=== PATIENT | male | born 1960 | race Caucasian/White ===

== ENCOUNTER 2019-04-02 13:58 | Day surgery (SDC) | payer OTHER, SELFPAY ==
--- NOTE | 2019-04-02 | PATH_ITS ---
[facility] Accession Number: [id number] . 01 Material submitted: . PART A: colon - ASCENDING COLON POLYP 4 MM X2 PART B: colon - DESCENDING COLON POLYP 2MM PART C: colon - SIGMOID POLYP 2MM X2 . 02 Diagnosis: A. Ascending Colon, Polyp, 4 MM, Biopsies: Tubular adenomas. . B. Descending Colon, Polyp, 2 MM, Biopsy: Hyperplastic polyp. . C. Sigmoid Colon, Polyp, 2 MM, Biopsy: Hyperplastic polyp, 1 fragment. I 04/04/2019 1301 Local . 02 Electronically signed: . Ashely Willard MD, Pathologist NPI- [id number] . 01 Gross description: . Part A: ASCENDING COLON POLYP 4 MM X2: Received in formalin are 3 fragment(s) of tian, soft tissue measuring 0.3 x 0.2 x 0.2 cm to 0.1 x 0.1 x 0.1 cm submitted entirely in 1 cassette(s) Part B: DESCENDING COLON POLYP 2MM: Received in formalin is 1 fragment(s) of tian, soft tissue measuring 0.3 x 0.1 x 0.1 cm submitted entirely in 1 cassette(s) Part C: SIGMOID POLYP 2MM X2: Received in formalin is 1 fragment(s) of tian, soft tissue measuring 0.4 x 0.2 x 0.1 cm submitted entirely in 1 cassette(s) /QBJ 04/03/2019 0607 Local . 02 Pathologist provided ICD-10: D12.2 . 02 CPT . 865840, 555697, 026064 Performed at: [address], [place], [place] [id number] MD Dusty Waldrop MD Phone: [phone] Performed at: 02 [facility] [place] [address] [place] [id number] MD Ashely Willard MD Phone: [phone]
--- NOTE | 2019-04-02 06:14 | PM.HP.1 ---
History of Present Illness History of Present Illness Date Patient Seen: 04/02/19 Time Patient Seen: 14:45 Chief complaint: [id number] Narrative: 58 Years Old Male comes in today for consideration of a screening colonoscopy. Last colonoscopy in 2013 indicated for screening significant for a 1 mm hepatic flexure tubular adenoma and pancolonic diverticulosis, mild. Prior to that, had a colonoscopy at age 18 secondary to abdominal pain, reportedly normal. Otherwise, there have been no lower GI symptoms suggesting disease such as change in bowel habits, bleeding, abdominal pain or anemia. There's been no family history of colon cancer or colon polyps. Overall health issues have been stable, including no major cardiac events for at least 6 weeks. Past Medical History: Diverticulosis History of colon polyps DEPRESSION W/ ANXIETY TRAPEZIUS MUSCLE STRAIN HYPERLIPIDEMIA HYPERTENSION DEGENERATIVE JOINT DISEASE SLEEP APNEA ALLERGY Past Surgical History: Right knee ACL reconstruction Bilateral shoulder rotator cuff repair Colonoscopy, 2013, tubular adenoma and diverticulosis Colonscopy, age 18, normal, indicated for abdominal pain Family History: Reviewed history from 09/17/2014 and no changes required: Father: age 74 - Lung Cancer, Alcohol, Heart Disease, Diabetes Mother: age 84, Skin Cancer, Stroke, Osteoporosis, Arthritis Siblings: Social History: Marital Status: - Jill (1959) - 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 Children: Yanira (1995) Susannah(1989), Aliece(1990) 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 -[email or web address] Education: Master's Degree Meds Home Medications and Allergies Home Medications Medication Instructions Recorded Confirmed Type lisinopril 20 mg PO DAILY 04/02/19 04/02/19 History lorazepam 0.5 mg PO BID PRN 04/02/19 04/02/19 History cipwixng-tmh-BC-lycopen-lutein 1 tab PO DAILY 04/02/19 04/02/19 History [Centrum Silver Men] Allergies Allergy/AdvReac Type Severity Reaction Status Date / Time No Known Drug Allergies Allergy Unverified 04/02/19 14:11 Review of Systems Review of Systems ROS Unobtainable: All systems reviewed & are unremarkable except as noted in HPI and below Exam Narrative Exam Narrative: General: Alert and oriented, appearing stated age and in no acute distress. Head: Head normocephalic/atraumatic. Neck: Neck soft and supple, no lymphadenopathy. Lungs: Clear to auscultation bilaterally, no wheezes, rhonchi or rales. Heart: Normal S1 and S2 with regular rate and rhythm, no audible murmurs, rubs or gallops. Abdomen: Soft, non-tender, non-distended, no organomegaly. Possitive bowel sounds. Neurologic: no focal deficits, CN II-XII grossly intact with normal reflexes, coordination, sensation, muscle strength and tone, Skin: intact without suspicious lesions or rashes, Psych: Alert and oriented x 3. Assessment & Plan Assessment & Plan narrative: Problem # 1: History of colon polyps 1. Colonoscopy The nature and character of the procedure as well as anticipated results were discussed. The possibility of not completing the procedure was also discussed. Possible complications including aspiration pneumonia, bleeding, perforation and reaction to medications either for sedation or preparation and missed lesions were discussed. Questions were answered and proceeding to the colonoscopy was elected. Informed consent signed. I sincerely appreciate the referral allowing me to participate in this patient's care. Please contact me with any questions or concerns. Problem # 2: Screening for colon cancer Please see #1. Problem # 3: Diverticulosis 1. Diagnosis of diverticulosis and the signs and symptoms of diverticulitis rediscussed with the patient today. High fiber diet and or fiber therapy outlined.
[2019-04-02 14:11] VITALS: BP 176/113; PULSE 90; RESP 16; TEMP 36; O2SAT 95; BMI 30.5
--- NOTE | 2019-04-02 14:12 | PM.OP.ENDO ---
Operative Date/Time/Diagnoses Date of procedure: 04/02/19 Time of procedure: 14:54 Pre-op diagnosis: 1. History of colon polyps 2. Screening for colon cancer 3. Diverticulosis Post-op diagnosis: other (Ascending polyp x2, 4-6 mm; descending polyp x1, 2 mm; sigmoid polyp x2, 2 mm) Procedure & Clinicians Study performed: 1. Colonoscopy Same procedure as scheduled: Yes Indications: 1. History of colon polyps 2. Screening for colon cancer 3. Diverticulosis Surgeon: Zamzam Melgar Procedure Notes SCOAP/Timeout: 14:54 Procedure in detail: ENDOSCOPIST: Zamzam Melgar MD Sedation RN: Olivia Maya RN Sedation start time: 2:55 p.m. Sedation end time: 3:20 p.m. PROCEDURE: Colonoscopy with cold biopsy INDICATIONS: 1. History of colon polyps 2. Screening for colon cancer 3. Diverticulosis MEDICATION: Levsin 0.125 mg sublingual, incremental doses of Versed and fentanyl until appropriate level sedation achieved. ASA CLASS: 2 CECAL WITHDRAWAL TIME: 14 minutes COMPLICATIONS: None. EXTENT OF PROCEDURE: Cecum. QUALITY OF PREP: Good with portions of liquid stool. PROCEDURE: Prior to insertion of the colonoscope, a digital rectal examination was accomplished with circumferential palpation of the distal rectal mucosa without significant findings being noted. The high-definition colonoscope was passed into the rectum in the usual fashion and advanced over to the cecum without difficulty. The ileocecal valve, appendiceal stoma, and medial wall all could be inspected and no abnormalities were seen. ASCENDING COLON: As the colonoscope was withdrawn, care was taken to expose and inspect the haustral folds and two, 4-6 mm polyps were removed with cold biopsy forceps, excellent hemostasis. Minor diverticulosis seen throughout withdrawal. HEPATIC FLEXURE: Minor diverticulosis, otherwise, no other abnormalities. TRANSVERSE COLON: Minor diverticulosis, otherwise, no other abnormalities. DESCENDING COLON: 2 mm polyp x1, removed with cold biopsy forceps. Monitor diverticulosis, otherwise no other abnormalities. SIGMOID COLON: 2 small polyps, 2 mm in size, removed with cold biopsy forceps. Otherwise, moderate diverticulosis but no other abnormalities. RECTUM: Normal. J maneuver was produced. There was no significant perianal disease. The J maneuver was broken. The remainder of the rectum was inspected and there was no external hemorrhoid disease. The scope was withdrawn. IMPRESSION: 1. Ascending polyp x2, 4-6 mm, removed with cold biopsy forceps 2. Descending polyp x1, 2 mm, removed with cold biopsy forceps 3. Sigmoid polyp x2, 2 mm, removed with cold biopsy forceps 4. Barreto colonic diverticulosis, left greater than right PLAN: 1. Follow up in clinic status post pathology results. The possibility of a missed lesion including a malignancy has been discussed with the patient previously. Potential alarm symptoms have been discussed and should be reported immediately. Scope withdrawal time: 14 minutes Sedation minutes: 30 Findings: diverticulosis and polyp Specimen(s): other Complications: none Impression: As above. Post-procedure Recommendations: Will call with biopsy results Follow up: weeks (2) Disposition: PACU
[2019-04-02] MEDS: SODIUM CHLORIDE 0.9% 1,000 ML 200 ML IV (14:29)
[2019-04-02] MEDS: fentaNYL 250 MCG/5 ML INJ IV (15:26)
[2019-04-02] MEDS: MIDAZOLAM 5 MG/5 ML VIAL IV (15:28)
[2019-04-02 15:30] VITALS: BP 151/92; PULSE 90; RESP 15; TEMP 36.7; O2SAT 95
[2019-04-02 15:45] VITALS: BP 134/88; PULSE 76; RESP 15; TEMP 36.6; O2SAT 94
[2019-04-02 16:01] VITALS: BP 141/92; PULSE 67; RESP 15; TEMP 36.7; O2SAT 95
== END 2019-04-02 16:06 | disposition home or self-care (01) ==
PROVIDERS: PCP Family Medicine; Visit Provider Student in an Organized Health Care Education/Training Program
PROC: 0DJD8ZZ Inspection of Lower Intestinal Tract, Via Natural or Artificial Opening Endoscopic (ICD-10-PCS; CPT 45378; principal; 2019-04-02 15:00)
DX: Z12.11 Encounter for screening for malignant neoplasm of colon (principal); Z86.010 Personal history of colon polyps; K57.30 Diverticulosis of large intestine without perforation or abscess without bleeding; D12.2 Benign neoplasm of ascending colon; K63.5 Polyp of colon
CPT/HCPCS: 45380; J2250; J3010

== ENCOUNTER → 2021-10-09 08:45 | Outpatient (CLI) | payer OTHER, SELFPAY ==
[2021-10-09 09:11] LABS: Add Manual Diff / Slide Review NO; Basophils Absolute Auto 0 /uL (0-100); Basophils Percent Auto 0.9 % (0-2); Eosinophils Absolute Auto 100 /uL (0-450); Eosinophils Percent Auto 1.6 % (2-4); Hematocrit 47.7 % (41-53); Hemoglobin 16.9 g/dL (13.5-17.5); Lymphocytes Absolute Auto 1600 /uL (1100-4500); Lymphocytes Percent Auto 30.3 % (25-40); Mean Corpuscular HGB Conc 35.4 % (30-36); Mean Corpuscular Volume 93.3 fL (80-100); Monocytes Absolute Auto 600 /uL (0-900); Monocytes Percent Auto 11.3 % (3-14); Neutrophils Absolute Auto 3000 /uL (1500-7000); Neutrophils Percent Auto 55.9 % (50-75); Platelet Count 197 X10^3/uL (150-400); Red Blood Cell Count 5.11 X10^6/uL (4.5-5.9); Red Cell Distribution Width 11.8 % (11.6-14.8); White Blood Cell Count 5.3 X10^3/uL (4.5-11.0)
[2021-10-09 09:24] LABS: Alanine Aminotransferase 40 IU/L (<50); Albumin 4.7 g/dL (3.5-5.0); Albumin Globulin Ratio 1.6 (1.0-2.8); Alkaline Phosphatase 52 U/L (38-126); Aspartate Aminotransferase 35 IU/L (17-59); BUN Creatinine Ratio 19.4 (6-22); Bilirubin Total 0.8 mg/dL (0.2-1.3); Blood Urea Nitrogen 19 mg/dL (9-20); Calcium 9.2 mg/dL (8.4-10.2); Carbon Dioxide 27 mmol/L (22-32); Chloride 104 mmol/L (98-107); Cholesterol 242 mg/dL (140-199); Estimated Glomerular Filt Rate > 60 mL/min (>60); Glucose 146 mg/dL (80-110); HDL Cholesterol 47 mg/dL (40-60); HEMOLYSIS < 15 (0-50); LDL Cholesterol Calculated 172 mg/dL (<100); Potassium 4.5 mmol/L (3.4-5.1); Sodium 138 mmol/L (137-145); Total Protein 7.7 g/dL (6.3-8.2); Triglycerides 117 mg/dL (35-150)
[2021-10-09 09:53] LABS: Prostate Specific Antigen Scrn 0.496 ng/mL (0.1-4.0)
[2021-10-09 09:54] LABS: TSH w/ Reflex to FT4 3.33 uIU/mL (0.47-4.68)
[2021-10-09 10:00] LABS: Hemoglobin A1C% w Est Avg Glu 6.4 % (4.0-6.0)
[2021-10-09 10:11] LABS: Microalbumi Creatinin Ratio Ur 6.4 ug/mg CR (<30); Microalbumin Urine Random 1.5 mg/dL (0-1.6)
== END ==
PROVIDERS: PCP Family Medicine; Referring Provider Family Medicine; Visit Provider Family Medicine
DX: F41.9 Anxiety disorder, unspecified (principal); I10 Essential (primary) hypertension; K63.5 Polyp of colon; Z12.5 Encounter for screening for malignant neoplasm of prostate; R73.9 Hyperglycemia, unspecified
CPT/HCPCS: 36415; 80053; 80061; 82043; 82570; 83036; 84443; 85025; G0103

== ENCOUNTER → 2022-12-14 14:03 | Outpatient (CLI) | payer OTHER, SELFPAY ==
--- NOTE | 2022-12-14 14:04 | DI.RAD.S_ITS ---
PROCEDURE: XR HAND RT MIN 3V INDICATIONS: bilateral hand pain TECHNIQUE: 3 views of the hand(s) acquired. COMPARISON: [facility], CR, XR HAND LT MIN 3V, 12/14/2022, 14:14. FINDINGS: Bones: No fractures or dislocations. Carpal bones are normally aligned. No suspicious bony lesions. Severe 1st CMC joint space narrowing with periarticular osteophyte formation and subchondral cystic change. Soft tissues: No suspicious soft tissue calcifications. 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 Dictated by: Truong Ugalde [facility] Interpreted: Wayne Gold MD on 12/14/2022 at 14:21 Transcribed by: CAROLINA on 12/14/2022 at 14:22 Approved by: Wayne Gold M.D. on 12/14/2022 at 21:02
--- NOTE | 2022-12-14 14:04 | DI.RAD.S_ITS ---
PROCEDURE: XR HAND LT MIN 3V INDICATIONS: bilateral hand pain TECHNIQUE: 3 views of the hand(s) acquired. COMPARISON: [facility], CR, XR HAND RT MIN 3V, 12/14/2022, 14:12. FINDINGS: Bones: No acute fractures or dislocations. Healed fracture deformity of the 5th metacarpus. Carpal bones are normally aligned. No suspicious bony lesions. Severe triscaphe and 1st CMC joint space narrowing with periarticular osteophyte formation. Soft tissues: No suspicious soft tissue calcifications. 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 Dictated by: Truong Ugalde [facility] Interpreted: Wayne Gold MD on 12/14/2022 at 14:22 Transcribed by: CAROLINA on 12/14/2022 at 14:23 Approved by: Wayne Gold M.D. on 12/14/2022 at 21:04
[2022-12-14 15:42] LABS: Add Manual Diff / Slide Review NO; Basophils Absolute Auto 0 /uL (0-100); Basophils Percent Auto 0.5 % (0-2); Eosinophils Absolute Auto 0 /uL (0-450); Eosinophils Percent Auto 0.6 % (2-4); Hematocrit 43.8 % (41-53); Hemoglobin 15.7 g/dL (13.5-17.5); Lymphocytes Absolute Auto 1900 /uL (1100-4500); Mean Corpuscular HGB Conc 35.8 % (30-36); Mean Corpuscular Hemoglobin 33.3 PG (26-34); Mean Corpuscular Volume 92.9 fL (80-100); Monocytes Absolute Auto 900 /uL (0-900); Monocytes Percent Auto 12.5 % (3-14); Neutrophils Absolute Auto 4000 /uL (1500-7000); Neutrophils Percent Auto 58.4 % (50-75); Platelet Count 201 X10^3/uL (150-400); Red Blood Cell Count 4.71 X10^6/uL (4.5-5.9); Red Cell Distribution Width 12.2 % (11.6-14.8); White Blood Cell Count 6.9 X10^3/uL (4.5-11.0)
[2022-12-14 16:05] LABS: Erythrocyte Sedimentation Rate 3 MM/HR (0-15)
[2022-12-14 16:22] LABS: Alanine Aminotransferase 38 IU/L (<50); Albumin 4.5 g/dL (3.5-5.0); Albumin Globulin Ratio 1.6 (1.0-2.8); Alkaline Phosphatase 68 U/L (38-126); Aspartate Aminotransferase 42 IU/L (17-59); BUN Creatinine Ratio 18.5 (6-22); Blood Urea Nitrogen 17 mg/dL (9-20); C-Reactive Protein Quant 0.6 mg/dL (<1.0); Calcium 9.1 mg/dL (8.4-10.2); Carbon Dioxide 25 mmol/L (22-32); Chloride 99 mmol/L (98-107); Cholesterol 213 mg/dL (140-199); Estimated Glomerular Filt Rate > 60 mL/min (>60); Globulin 2.9 g/dL (1.7-4.1); Glucose 112 mg/dL (80-110); HDL Cholesterol 46 mg/dL (40-60); HEMOLYSIS < 15 (0-50); LDL Cholesterol Calculated 149 mg/dL (<100); Potassium 4.1 mmol/L (3.4-5.1); Sodium 133 mmol/L (137-145); Total Protein 7.4 g/dL (6.3-8.2); Triglycerides 90 mg/dL (35-150)
[2022-12-14 16:23] LABS: Rheumatoid Factor 23.2 IU/mL (<12.0)
[2022-12-14 16:47] LABS: TSH w/ Reflex to FT4 2.48 uIU/mL (0.47-4.68)
[2022-12-14 16:49] LABS: Prostate Specific Antigen Scrn 0.354 ng/mL (0.1-4.0)
[2022-12-14 18:35] LABS: Creatinine Urine Random 156.7 mg/dL
[2022-12-14 18:41] LABS: Microalbumi Creatinin Ratio Ur 6.3 ug/mg CR (<30)
[2022-12-15 22:13] LABS: Labcorp Hemoglobin (Hb) A1c 6.2 % (4.8-5.6)
[2022-12-16 16:36] LABS: ANA Screen, IFA Negative (.)
== END ==
PROVIDERS: PCP Family Medicine; Referring Provider Family Medicine; Visit Provider Family Medicine
DX: M18.0 Bilateral primary osteoarthritis of first carpometacarpal joints (principal); M19.032 Primary osteoarthritis, left wrist; M79.642 Pain in left hand; M79.641 Pain in right hand; I10 Essential (primary) hypertension; M25.50 Pain in unspecified joint; M25.60 Stiffness of unspecified joint, not elsewhere classified; R73.9 Hyperglycemia, unspecified; F41.9 Anxiety disorder, unspecified; R01.1 Cardiac murmur, unspecified; Z12.5 Encounter for screening for malignant neoplasm of prostate
CPT/HCPCS: 36415; 73130; 80053; 80061; 82043; 82570; 83036; 84443; 85025; 85651; 86038; 86140; 86430; G0103

== ENCOUNTER → 2024-04-04 10:33 | Outpatient (CLI) | payer MEDICARE, OTHER, SELFPAY ==
[2024-04-04 11:09] LABS: Hemoglobin A1C% w Est Avg Glu 6.1 % (4.0-6.0)
[2024-04-04 11:26] LABS: Cholesterol 201 mg/dL (140-199); HDL Cholesterol 41 mg/dL (40-60); LDL Cholesterol Calculated 146 mg/dL (<100); Triglycerides 72 mg/dL (35-150)
[2024-04-04 11:57] LABS: Prostate Specific Antigen Scrn 0.346 ng/mL (0.1-4.0)
[2024-04-04 11:58] LABS: TSH w/ Reflex to FT4 2.51 uIU/mL (0.47-4.68)
[2024-04-04 12:10] LABS: Creatinine Urine Random 121.25 mg/dL
[2024-04-04 12:15] LABS: Microalbumin Urine Random 1.1 mg/dL (0-1.6)
== END ==
LOC: LAB 10:34
PROVIDERS: PCP Family Medicine; Referring Provider Family Medicine; Visit Provider Family Medicine
DX: R73.9 Hyperglycemia, unspecified (principal); I10 Essential (primary) hypertension; Z12.5 Encounter for screening for malignant neoplasm of prostate; R01.1 Cardiac murmur, unspecified; R00.2 Palpitations; G47.8 Other sleep disorders; R06.83 Snoring; M05.79 Rheumatoid arthritis with rheumatoid factor of multiple sites without organ or systems involvement; D47.2 Monoclonal gammopathy
CPT/HCPCS: 36415; 80061; 82043; 82570; 83036; 84443; G0103

== ENCOUNTER → 2024-04-16 07:47 | Outpatient (CLI) | payer MEDICARE, OTHER, SELFPAY | LOC: CAR 07:48 | PROVIDERS: PCP Family Medicine; Referring Provider Family Medicine; Visit Provider Family Medicine | DX: R00.2 Palpitations (principal) | CPT/HCPCS: 93246 ==

== ENCOUNTER → 2024-04-30 10:28 | Outpatient (CLI) | payer MEDICARE, OTHER, SELFPAY ==
--- NOTE | 2024-04-30 10:29 | DI.ECHO.S_ITS ---
[facility] : : [id number] : [place] : : [id number] : : Phone: [phone] Echocardiogram Report + + :Name: SEBASTIAN MICHAELS Study Date: 04/30/2024 Height: 69 in : :[facility] ReadingLocation: Weight: 212 lb : : Gender: Male BSA: 2.1 m2 : :: 1960 Age: 63 yrs BP: 192/111 mmHg: :Reason For Study: MURMUR : :Ordering Physician: LISY, : :DEMETRIO Performed By: Jorge Lees : :Referring: DEMETRIO WASSERMAN : + + Interpretation Summary Normal left ventricle size with ejection fraction 55-60%. Mild biatrial enlargement. Mild aortic stenosis. Mild mitral stenosis. Procedure: A two-dimensional transthoracic echocardiogram with color flow and Doppler was performed. The study quality was technically adequate. There is no prior echocardiogram noted for this patient. The patient was in normal sinus rhythm during the exam. Left Ventricle: The left ventricle is normal in size. There is normal left ventricular wall thickness. There is no ventricular septal defect visualized. The ejection fraction is estimated to be 55-60%. There are no focal wall motion abnormalities. Right Ventricle: The right ventricle is normal in size and function. Atria: There is mild biatrial enlargement. There is no Doppler evidence for an atrial septal defect. Mitral Valve: There is mild mitral annular calcification. The mitral valve leaflets are moderately calcified. There is mild mitral stenosis. The mitral valve mean gradient is 3 mmHg. There is trace mitral regurgitation. Aortic Valve: The aortic valve is moderately calcified. A bicuspid aortic valve cannot be excluded. There is mild aortic stenosis. The peak aortic velocity is 2.63 m/sec. The aortic valve mean gradient is 15.5 mmHg. The calculated aortic valve area is 1.6 cm2. There is trace aortic regurgitation. Tricuspid Valve: The tricuspid valve is normal in structure and function. There is mild tricuspid regurgitation. The right ventricular systolic pressure is estimated to be at least 29 mmHg based on an estimated right atrial pressure of 3 mm Hg. Pulmonic Valve: The pulmonic valve is normal in structure and function. There is no pulmonic valvular regurgitation. Great Vessels: The aortic root is mildly dilated. The ascending aorta is mildly enlarged. The pulmonary artery is normal size. The IVC is of normal diameter and collapses greater than 50% with a sniff. This suggests a low right atrial pressure of 3 mm Hg. Pericardium/ Pleura There is no pericardial effusion. There is no pleural effusion. MMode/2D Measurements & Calculations LVIDd: 4.9 cm LVOT diam: 2.0 cm LVIDs: 3.7 cm Ao root diam: 3.9 cm FS: 24.1 % asc Aorta Diam: 3.9 cm EPSS: 1.7 cm Ao Arch Diam (Prox Trans): 1.8 cm IVSd: 1.1 cm LVPWd: 1.0 cm LV corado. diameter/BSA (cm/m^2): 2.3 LV sys. diameter/BSA (cm/m^2): 1.8 LA A2 area: 23.8 cm2 RA long axis: 5.5 cm LA A4 area: 25.6 cm2 RA area: 18.8 cm2 LA length (vol): 6.4 cm RA vol: 54.2 ml LA vol: 81.0 ml RA : 25.6 ml/m2 LA vol index: 38.3 ml/m2 IVC diam: 2.0 cm RVD1 (basal): 3.9 cm RVD2 (mid): 2.8 cm TAPSE: 3.1 cm Doppler Measurements & Calculations Ao V2 max: 263.3 cm/sec LVOT Max Jeremy: 126.0 cm/sec Ao V2 mean: 184.5 cm/sec LV V1 max P.4 mmHg Ao max P.7 mmHg LV V1 VTI: 35.0 cm Ao mean P.5 mmHg NANCY(I,D): 1.9 cm2 Ao V2 VTI: 61.8 cm NANCY(V,D): 1.6 cm2 sev ratio: 0.57 NANCY indexed to BSA (cm^2/m^2): 0.88 MV E max jeremy: 96.0 cm/sec TR max jeremy: 254.2 cm/sec MV A max jeremy: 118.9 cm/sec TR max P.8 mmHg MV E/A: 0.81 PA V2 max: 95.9 cm/sec Med Peak E' Jeremy: 6.2 cm/sec PA V2 mean: 70.4 cm/sec E/E' med: 15.5 PA mean P.2 mmHg Lat Peak E' Jeremy: 6.1 cm/sec PA pr(Accel): 48.2 mmHg E/E' lat: 15.6 E/e' average: 15.6 MV dec time: 0.22 sec MVA(VTI): 2.6 cm2 MV V2 mean: 80.9 cm/sec SV(LVOT): 114.9 ml MV mean P.1 mmHg MV V2 VTI: 45.0 cm Electronically signed by: Hailey Mccracken on Reading Physician:04/30/2024 01:53 PM
== END ==
LOC: ECHO 10:29
PROVIDERS: PCP Family Medicine; Referring Provider Family Medicine; Visit Provider Family Medicine
DX: R01.1 Cardiac murmur, unspecified (principal); I08.3 Combined rheumatic disorders of mitral, aortic and tricuspid valves; I77.810 Thoracic aortic ectasia; I77.89 Other specified disorders of arteries and arterioles
CPT/HCPCS: 93306

== ENCOUNTER → 2024-06-22 07:49 | Outpatient (CLI) | payer MEDICARE, OTHER, SELFPAY ==
[2024-06-22 08:23] LABS: Add Manual Diff / Slide Review NO; Alanine Aminotransferase 35 IU/L (<50); Albumin 4.4 g/dL (3.5-5.0); Albumin Globulin Ratio 1.8 (1.0-2.8); Alkaline Phosphatase 42 U/L (38-126); Aspartate Aminotransferase 35 IU/L (17-59); BUN Creatinine Ratio 17.2 (6-22); Basophils Absolute Auto 0 /uL (0-100); Basophils Percent Auto 0.8 % (0-2); Bilirubin Total 0.6 mg/dL (0.2-1.3); Blood Urea Nitrogen 17 mg/dL (9-20); Calcium 9.2 mg/dL (8.4-10.2); Carbon Dioxide 29 mmol/L (22-32); Chloride 103 mmol/L (98-107); Cholesterol 163 mg/dL (140-199); Eosinophils Absolute Auto 100 /uL (0-450); Eosinophils Percent Auto 2.4 % (2-4); Estimated Glomerular Filt Rate > 60 mL/min (>60); Globulin 2.4 g/dL (1.7-4.1); Glucose 114 mg/dL (80-110); HDL Cholesterol 37 mg/dL (40-60); HEMOLYSIS < 15 (0-50); Hematocrit 44.9 % (41-53); Hemoglobin 15.5 g/dL (13.5-17.5); LDL Cholesterol Calculated 110 mg/dL (<100); Lymphocytes Absolute Auto 1800 /uL (1100-4500); Lymphocytes Percent Auto 41.1 % (25-40); Mean Corpuscular HGB Conc 34.5 % (30-36); Mean Corpuscular Hemoglobin 32.1 PG (26-34); Monocytes Absolute Auto 600 /uL (0-900); Neutrophils Absolute Auto 1800 /uL (1500-7000); Neutrophils Percent Auto 41.7 % (50-75); Platelet Count 195 X10^3/uL (150-400); Potassium 4.8 mmol/L (3.4-5.1); Red Blood Cell Count 4.82 X10^6/uL (4.5-5.9); Red Cell Distribution Width 12.4 % (11.6-14.8); Sodium 139 mmol/L (137-145); Total Protein 6.8 g/dL (6.3-8.2); Triglycerides 82 mg/dL (35-150); White Blood Cell Count 4.4 X10^3/uL (4.5-11.0)
[2024-06-23 08:10] LABS: Apolipoprotein B 83 mg/dL (<90)
== END ==
PROVIDERS: PCP Family Medicine; Referring Provider Family Medicine; Visit Provider Family Medicine
DX: M06.9 Rheumatoid arthritis, unspecified (principal); I10 Essential (primary) hypertension; R73.9 Hyperglycemia, unspecified; R01.1 Cardiac murmur, unspecified; E78.5 Hyperlipidemia, unspecified
CPT/HCPCS: 36415; 80053; 80061; 82172; 85025

== ENCOUNTER 2024-07-05 08:40 | Day surgery (SDC) | payer MEDICARE, OTHER, SELFPAY ==
[2024-07-05] VITALS (7 sets, daily range): BP systolic 70–135; BP diastolic 40–78; PULSE 47–60; RESP 12–16; TEMP 36.4–36.5; O2SAT 93–100
--- NOTE | 2024-07-05 | PATH_ITS ---
[facility] Accession Number: [id number] No. of containers..01 Tissue . 01 Material submitted: . colon - ASCENDING COLON POLYP . 01 Diagnosis: ASCENDING COLON POLYP: Tubular adenoma. STO 07/08/20241736 Local . 01 Electronically signed: . Dusty Waldrop MD, Pathologist NPI- [id number] . 01 Gross description: . ASCENDING COLON POLYP: Received in formalin are 2 fragment(s) of tian, soft tissue measuring 0.4 x 0.3 x 0.2 cm to 0.6 x 0.4 x 0.2 cm submitted entirely in 1 cassette(s) /CARLOS 07/08/20241736 Local . 01 Pathologist provided ICD-10: D12.2 . 01 CPT . 520330 Specimen Comment: A courtesy copy of this report has been sent to [facility] Pathology Performed at: [address] [address], [place], [place] [id number] MD Dusty Waldrop MD Phone: [phone]
[2024-07-05] MEDS: LACTATED RINGERS 1,000 ML 42 ML IV (10:15)
--- NOTE | 2024-07-05 10:27 | P.HP_ITS ---
History of Present Illness History of Present Illness Date Patient Seen: 07/05/24 Time Patient Seen: 10:28 Chief complaint: Colonoscopy Narrative: 63-year-old white male presents for subsequent colonoscopy after previous polypectomies. No changes in health. [facility] Medical History (Updated 07/05/24 @ 10:28 by Kwasi Zaragoza MD) Personal history of colonic polyps Hyperlipidemia Welcome to Medicare preventive visit MGUS (monoclonal gammopathy of unknown significance) Rheumatoid arthritis Hearing loss Depression Hyperglycemia Murmur, cardiac Diverticulosis Colon polyps Anxiety (~2014) Hypertension (~2008) Surgical History Anesthesia H/O left knee surgery (~02/10/21) History of ear surgery History of ankle surgery (~1981) H/O right knee surgery (~1987) History of shoulder surgery Family History Father Cancer Social History household members: spouse Smoking Status: Former smoker alcohol intake: former Meds Home Medications and Allergies Home Medications Medication Instructions Recorded Confirmed Type zjjpdafs-hy-vhlsc 300 mcg-K 60 1 tab PO DAILY 04/02/19 07/05/24 History mcg-lycop 600 mcg-lutein 300 mcg tablet (Centrum Silver Men) vitamin B complex 1 tab PO DAILY 10/09/21 07/05/24 History lisinopril 20 mg tablet 20 mg PO DAILY #90 tabs 05/04/24 07/05/24 Rx nebivolol 10 mg tablet mg 07/05/24 History rosuvastatin 5 mg tablet 5 mg PO ONCE PM 07/05/24 07/05/24 History Allergies Allergy/AdvReac Type Severity Reaction Status Date / Time No Known Drug Allergies Allergy Verified 07/05/24 09:57 Exam Vital Signs (past 8 hours): - 07/05/24 10:02 Temperature 97.6 F Pulse Rate 48 L Respiratory Rate 16 Blood Pressure 135/74 Pulse Oximetry 100 Oxygen Delivery Method Room Air Oxygen Delivery Method Room Air Narrative Exam Narrative: Gen: NAD, sitting comfortably in bed, appears well HEENT: Sclera are anicteric, head is normocephalic and atraumatic, trachea is midline. CV: RRR, no JVD Resp: clear to auscultation bilaterally, equal chest wall movement bilaterally Abd: soft, nontender, normoactive bowel sounds Ext: no edema, full range of motion Neuro: Cranial nerves II-XII grossly intact, no focal deficits Skin: No erythema or ecchymosis Assessment & Plan Assessment and plan (1) Personal history of colonic polyps: Status: Acute Assessment & Plan narrative: Patient presents for colonoscopy Risks, benefits, alternatives to colonoscopy explained, including but not limited to bowel perforation or other serious complication requiring surgery at less than 1 in 5000 colonoscopies, abdominal pain, cramping or bleeding and less than 1% of colonoscopies, and the chances that we find a diagnosis that would require further intervention of about 2%. Patient agrees to proceed. Time-Based Coding :: [TOTAL MINUTES] spent with patient and on the chart (including review of chart, obtaining history, exam, reviewing outside data, placing orders, documenting exam and treatment plan, and counseling patient) on [DATE]. PROFEE Protective Signal Repairer Document charge(s): No
--- NOTE | 2024-07-05 10:56 | PM.OP.COLON ---
Operative Date/Time/Diagnoses Date of procedure: 07/05/24 Time of procedure: 10:58 Pre-op diagnosis: Colon screening Post-op diagnosis: same (Ascending colon polyp) Procedure & Clinicians Study performed: Colonoscopy with cold snare polypectomy of ascending colon polyp Same procedure as scheduled: Yes Indications: Colon screening, history of polyps Surgeon: Kwasi Zaragoza Procedure Notes SCOAP/Timeout: Performed Procedure in detail: Time-out was performed. Mac was induced. Patient was placed in left lateral decubitus position. The perineum was inspected without any gross abnormality. Lubricated pediatric colonoscope was inserted and advanced to the cecum. The terminal ileum was intubated. The colonoscope was withdrawn slowly inspecting the circumference of the colon. Very small polyps may have been missed, prep quality was adequate. Retroflexed view of the rectum showed small, non prolapsed nonbleeding internal hemorrhoids. The scope was withdrawn the patient was taken to PACU in good condition. Scope withdrawal time: 7 Sedation minutes: 11 Findings: polyp(s) Specimen(s): other (Ascending colon polyp) Complications: none Post-procedure Recommendations: Colonoscopy in 5 years (Next colonoscopy in 5-7 years) Follow up: as needed Disposition: PACU
== END 2024-07-05 11:30 | disposition home or self-care (01) ==
PROVIDERS: PCP Family Medicine; Referring Provider Surgery; Visit Provider Surgery
PROC: 0DJD8ZZ Inspection of Lower Intestinal Tract, Via Natural or Artificial Opening Endoscopic (ICD-10-PCS; CPT 45378; principal; 2024-07-05 09:45)
DX: Z12.11 Encounter for screening for malignant neoplasm of colon (principal); D12.2 Benign neoplasm of ascending colon; Z86.0100 Personal history of colon polyps, unspecified; K64.8 Other hemorrhoids; Z87.891 Personal history of nicotine dependence
CPT/HCPCS: 45385; J2704

== ENCOUNTER → 2024-12-30 14:06 | Outpatient (CLI) | payer MEDICARE, OTHER, SELFPAY ==
--- NOTE | 2024-12-30 14:09 | DI.MRI.S_ITS ---
PROCEDURE: MR BRAIN (IAC) WWO CON INDICATIONS: Asymmetric hearing loss/assess for bony erosions TECHNIQUE: Noncontrast sagittal T1 spin echo, axial FLAIR, axial gradient echo, axial diffusion and ADC through the brain. Axial thin-slice 3D CISS, coronal TruFISP, axial T1 spin echo with fat saturation through the internal auditory canals. After the administration of contrast, thin slice axial and coronal T1 spin echo with fat saturation through the internal auditory canals, and axial and coronal and sagittal T1 spin echo with fat saturation through the brain. COMPARISON: None. FINDINGS: Image quality: Excellent. Cerebellopontine angles: There is a 2 mm diameter focus of enhancement within the lateral aspect of the left internal auditory canal. Right internal auditory canal is within normal limits. CSF spaces: Ventricles are normal in size and shape. No extra-axial fluid collections. Basal cisterns are patent. Brain: No intracranial bleeds or mass effects. Mild diffuse cerebral volume loss. Mild degree of patchy high FLAIR signal within the periventricular and subcortical white matter. Thomas-white matter interface is intact. No abnormal intracranial enhancement. Diffusion weighted images demonstrate no acute ischemic insults. Brainstem appears normal. Normal intravascular flow voids are present. Skull and face: Calvarial marrow signal is normal. Orbits appear normal. Sinuses: Sinuses and mastoids are clear. IMPRESSION: 1. 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 2. Volume loss and small vessel ischemic disease. Dictated by: Antony Nelson M.D. on 12/31/2024 at 12:19 Approved by: Antony Nelson M.D. on 12/31/2024 at 12:21
== END ==
LOC: MRI 14:07
PROVIDERS: PCP Family Medicine; Referring Provider Otolaryngology Otology & Neurotology; Visit Provider Otolaryngology Otology & Neurotology
DX: H70.11 Chronic mastoiditis, right ear (principal); I67.89 Other cerebrovascular disease; Z86.69 Personal history of other diseases of the nervous system and sense organs
CPT/HCPCS: 70553; A9579

== ENCOUNTER → 2025-03-26 09:13 | Outpatient (CLI) | payer MEDICARE, OTHER, SELFPAY ==
[2025-03-26 10:35] LABS: HEMOLYSIS < 15 (0-50); Iron 107 ug/dL (49-181)
[2025-03-26 10:44] LABS: Cholesterol 118 mg/dL (140-199); HDL Cholesterol 49 mg/dL (40-60); Triglycerides 76 mg/dL (35-150)
[2025-03-26 10:51] LABS: Percent Iron Saturation 33 % (20-50); Total Iron Binding Capacity 325 ug/dL (261-462); Transferrin 271 mg/dL (206-381)
[2025-03-26 11:11] LABS: Ferritin 247 ng/mL (18-464)
== END ==
PROVIDERS: PCP Family Medicine; Referring Provider Internal Medicine Cardiovascular Disease; Visit Provider Internal Medicine Cardiovascular Disease
DX: E83.10 Disorder of iron metabolism, unspecified (principal); E78.5 Hyperlipidemia, unspecified; G47.61 Periodic limb movement disorder
CPT/HCPCS: 36415; 80061; 82728; 83540; 83550; 86140

== ENCOUNTER → 2025-05-08 08:14 | Outpatient (CLI) | payer MEDICARE, OTHER, SELFPAY ==
[2025-05-08 09:05] LABS: Add Manual Diff / Slide Review NO; Hematocrit 41.9 % (41-53); Hemoglobin 14.4 g/dL (13.5-17.5); Lymphocytes Absolute Auto 1400 /uL (1100-4500); Mean Corpuscular HGB Conc 34.3 % (30-36); Mean Corpuscular Hemoglobin 31.9 PG (26-34); Mean Corpuscular Volume 93.2 fL (80-100); Platelet Count 167 X10^3/uL (150-400)
[2025-05-08 10:05] LABS: Alanine Aminotransferase 45 IU/L (<50); Albumin 4.2 g/dL (3.5-5.0); Albumin Globulin Ratio 1.7 (1.0-2.8); Alkaline Phosphatase 49 U/L (38-126); Blood Urea Nitrogen 19 mg/dL (9-20); Calcium 9.0 mg/dL (8.4-10.2); Carbon Dioxide 26 mmol/L (22-32); Chloride 102 mmol/L (98-107); Estimated Glomerular Filt Rate > 60 mL/min (>60); Globulin 2.5 g/dL (1.7-4.1); Glucose 121 mg/dL (70-99); HEMOLYSIS < 15 (0-50); Potassium 4.6 mmol/L (3.4-5.1); Sodium 137 mmol/L (137-145); Total Protein 6.7 g/dL (6.3-8.2)
[2025-05-09 16:09] LABS: Free Kappa Lt Chains, Serum 12.4 mg/L (3.3-19.4); Free Lambda Lt Chains,Serum 35.0 mg/L (5.7-26.3)
== END ==
PROVIDERS: PCP Family Medicine
DX: D47.2 Monoclonal gammopathy (principal)
CPT/HCPCS: 80053; 82232; 82784; 83615; 83883; 84155; 84165; 85025; 86334